=== PATIENT | female | born 2000 | race Native Hawaiian/Other Pacific Islander ===

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

== ENCOUNTER 2019-11-11 10:55 | Outpatient (CLI) | payer OTHER | END 2019-11-11 21:31 | disposition home or self-care (01) | LOC: LAB 10:55 | DX: K52.9 Noninfective gastroenteritis and colitis, unspecified (principal) | CPT/HCPCS: 83630; 87015; 87045; 87324; 87328; 87329; 87449; 87899 ==

== ENCOUNTER 2019-11-26 09:56 | Outpatient (CLI) | payer OTHER | END 2019-11-26 21:31 | disposition home or self-care (01) | LOC: US 09:56 | DX: K52.9 Noninfective gastroenteritis and colitis, unspecified (principal) ==

== ENCOUNTER 2020-05-25 14:53 | Outpatient (CLI) | payer OTHER | END 2020-05-25 22:16 | disposition home or self-care (01) | LOC: RAD 14:53 | PROVIDERS: ATTEND Family Medicine | DX: M25.561 Pain in right knee (principal); S20.213A Contusion of bilateral front wall of thorax, initial encounter ==

== ENCOUNTER 2020-12-20 11:11 | Outpatient (CLI) | payer OTHER | END 2020-12-20 22:41 | disposition home or self-care (01) | LOC: RAD 11:11 | PROVIDERS: ATTEND Family Medicine | DX: U07.1 COVID-19 (principal) ==

== ENCOUNTER 2020-12-21 10:18 | Outpatient (CLI) | payer OTHER ==
[~2020-12-21] VITALS: Ht 167.6 cm; Wt 95.3 kg
== END 2020-12-21 13:42 | disposition home or self-care (01) ==
LOC: INF 10:18
PROVIDERS: ATTEND Family Medicine
DX: Z23 Encounter for immunization (principal); U07.1 COVID-19
CPT/HCPCS: 96365; M0244

== ENCOUNTER 2020-12-22 08:47 | Outpatient (CLI) | payer OTHER | END 2020-12-22 15:42 | disposition home or self-care (01) | LOC: RAD 08:47 | PROVIDERS: ATTEND Nurse Practitioner Family | DX: Z03.89 Encounter for observation for other suspected diseases and conditions ruled out (principal) ==

== ENCOUNTER 2021-03-29 19:47 | Emergency (ER) | payer OTHER ==
[~2021-03-29] VITALS: Ht 167.6 cm; Wt 99.8 kg
[2021-03-30 00:05] VITALS: BP 140/88; TEMP 98.3
== END 2021-03-30 00:05 | disposition home or self-care (01) ==
LOC: ED 19:47
DX: R50.9 Fever, unspecified (principal); J32.8 Other chronic sinusitis; J06.9 Acute upper respiratory infection, unspecified; Z20.822 Contact with and (suspected) exposure to COVID-19; Z86.16 Personal history of COVID-19
CPT/HCPCS: 87502; 87635; 99283; U0003

== ENCOUNTER 2021-04-05 13:35 | Outpatient (CLI) | payer OTHER ==
[2021-04-05 14:07] LABS: POTASSIUM 4.3 mmol/L (3.6-5.2)
== END 2021-04-05 20:25 | disposition home or self-care (01) ==
LOC: LABW 13:35
PROVIDERS: ATTEND Nurse Practitioner Family
DX: R10.11 Right upper quadrant pain (principal)
CPT/HCPCS: 36415; 80053; 82150; 83690

== ENCOUNTER 2021-04-12 09:20 | Outpatient (CLI) | payer OTHER | END 2021-04-12 18:56 | disposition home or self-care (01) | LOC: US 09:20 | PROVIDERS: ATTEND Nurse Practitioner Family | DX: R10.11 Right upper quadrant pain (principal) ==

== ENCOUNTER 2021-07-13 12:14 | Outpatient (CLI) | payer OTHER | END 2021-07-13 19:23 | disposition home or self-care (01) | LOC: RAD 12:14 | PROVIDERS: ATTEND Internal Medicine | DX: M54.50 Low back pain, unspecified (principal) ==

== ENCOUNTER 2021-07-25 13:32 | Outpatient (CLI) | payer OTHER | END 2021-07-25 19:45 | disposition home or self-care (01) | LOC: RAD 13:32 | PROVIDERS: ATTEND Nurse Practitioner Family | DX: R05.3 Chronic cough (principal) ==

== ENCOUNTER 2021-08-04 08:04 | Outpatient (CLI) | payer OTHER | END 2021-08-04 20:38 | disposition home or self-care (01) | LOC: US 08:04 | PROVIDERS: ATTEND Family Medicine | DX: R74.8 Abnormal levels of other serum enzymes (principal) ==

== ENCOUNTER 2021-12-13 12:06 | Outpatient (CLI) | payer OTHER ==
[2021-12-13 12:45] LABS: POTASSIUM 3.5 mmol/L (3.6-5.2)
== END 2021-12-13 19:12 | disposition home or self-care (01) ==
LOC: LABW 12:06
PROVIDERS: ATTEND Nurse Practitioner Family
DX: R53.83 Other fatigue (principal)
CPT/HCPCS: 36415; 80053

== ENCOUNTER 2022-01-11 10:21 | Outpatient (CLI) | payer OTHER ==
[~2022-01-11] VITALS: Ht 170.2 cm; Wt 101.4 kg
[2022-01-11 10:55] VITALS: BP 118/71; TEMP 98.9
[2022-01-11 11:51] VITALS: BP 123/73; TEMP 98.3
[2022-01-11 12:06] VITALS: BP 113/60; TEMP 98.4
[2022-01-11 12:37] VITALS: BP 123/73; TEMP 98
== END 2022-01-11 19:36 | disposition home or self-care (01) ==
LOC: INF 10:21
PROVIDERS: ATTEND Family Medicine
DX: Z23 Encounter for immunization (principal); U07.1 COVID-19
CPT/HCPCS: 96374; Q0222

== ENCOUNTER 2022-05-13 13:10 | Emergency (ER) | payer OTHER ==
[~2022-05-13] VITALS: Ht 170.2 cm; Wt 97.5 kg
[2022-05-13 13:25] VITALS: BP 101/63; TEMP 99
== END 2022-05-13 14:42 | disposition home or self-care (01) ==
LOC: ED 13:10
DX: B34.9 Viral infection, unspecified (principal); Z20.822 Contact with and (suspected) exposure to COVID-19
CPT/HCPCS: 87502; 87635; 87651; 99283; U0003

== ENCOUNTER 2022-06-07 11:20 | Outpatient (CLI) | payer OTHER ==
[2022-06-07 11:48] LABS: PLATELET COUNT 346 K/uL (152-353)
[2022-06-07 12:55] LABS: POTASSIUM 4.1 mmol/L (3.6-5.2)
== END 2022-06-07 19:28 | disposition home or self-care (01) ==
LOC: LABW 11:20
PROVIDERS: ATTEND Psychiatry & Neurology Psychiatry
DX: F31.9 Bipolar disorder, unspecified (principal); F42.2 Mixed obsessional thoughts and acts; Z79.899 Other long term (current) drug therapy; E55.9 Vitamin D deficiency, unspecified; E56.8 Deficiency of other vitamins; M06.4 Inflammatory polyarthropathy; R70.0 Elevated erythrocyte sedimentation rate
CPT/HCPCS: 36415; 80053; 80061; 82306; 83036; 84443; 85027; 85652; 86140

== ENCOUNTER 2022-06-22 11:57 | Outpatient (CLI) | payer OTHER ==
[~2022-06-22] VITALS: Ht 170.2 cm; Wt 99.8 kg
[2022-06-22 12:25] VITALS: BP 137/83; TEMP 98.6
[2022-06-22 15:52] VITALS: BP 146/80; TEMP 98
== END 2022-06-22 21:46 | disposition home or self-care (01) ==
LOC: INF 11:57
PROVIDERS: ATTEND Family Medicine
DX: A08.4 Viral intestinal infection, unspecified (principal); E86.0 Dehydration
CPT/HCPCS: 80053; 82150; 83690; 96360; 96361

== ENCOUNTER 2022-07-09 13:28 | Emergency (ER) | payer OTHER ==
[~2022-07-09] VITALS: Ht 170.2 cm; Wt 99.8 kg
[2022-07-09 13:30] VITALS: TEMP 98
[2022-07-09 14:29] VITALS: BP 124/77
== END 2022-07-09 14:31 | disposition home or self-care (01) ==
LOC: ED 13:28
DX: T78.49XA Other allergy, initial encounter (principal); T65.6X1A Toxic effect of paints and dyes, not elsewhere classified, accidental (unintentional), initial encounter; L81.8 Other specified disorders of pigmentation; X58.XXXA Exposure to other specified factors, initial encounter; Y92.89 Other specified places as the place of occurrence of the external cause
CPT/HCPCS: 99282

== ENCOUNTER 2022-09-22 19:48 | Emergency (ER) | payer OTHER ==
[~2022-09-22] VITALS: Ht 170.2 cm; Wt 99.8 kg
[2022-09-22 19:48] VITALS: TEMP 98.5
[2022-09-22 20:42] LABS: PLATELET COUNT 361 K/uL (152-353)
[2022-09-22 20:53] LABS: POTASSIUM 3.8 mmol/L (3.6-5.2); SODIUM 139 mmol/L (136-145)
[2022-09-22 22:30] VITALS: BP 101/59
== END 2022-09-22 22:57 | disposition home or self-care (01) ==
LOC: ED 19:48
PROVIDERS: Emergency Medicine
DX: F19.10 Other psychoactive substance abuse, uncomplicated (principal); F12.90 Cannabis use, unspecified, uncomplicated
CPT/HCPCS: 36415; 80053; 80143; 80179; 80307; 80320; 81002; 81025; 85027; 93005; 99284

== ENCOUNTER 2023-03-01 17:24 | Outpatient (CLI) | payer OTHER | END 2023-03-01 20:02 | disposition home or self-care (01) | LOC: RAD 17:24 | PROVIDERS: ATTEND Nurse Practitioner Family | DX: S20.229A Contusion of unspecified back wall of thorax, initial encounter (principal); Y92.89 Other specified places as the place of occurrence of the external cause ==

== ENCOUNTER 2023-07-07 07:44 | Emergency (ER) | payer OTHER ==
[~2023-07-07] VITALS: Ht 170.2 cm; Wt 99.8 kg
[2023-07-07 08:41] VITALS: BP 152/81; TEMP 100.6
== END 2023-07-07 08:48 | disposition home or self-care (01) ==
LOC: ED 07:44
DX: R05.9 Cough, unspecified (principal); R09.81 Nasal congestion; R30.9 Painful micturition, unspecified; J40 Bronchitis, not specified as acute or chronic; J06.9 Acute upper respiratory infection, unspecified
CPT/HCPCS: 81002; 81025; 87502; 87635; 99283; U0003